=== PATIENT | male | born 1970 | race Caucasian/White ===

== ENCOUNTER 2019-11-19 22:54 | Emergency (ER) | payer SELFPAY ==
[2017-02-20 21:27] VITALS: BMI 20.9
[2019-11-19 22:56] VITALS: BP 129/88; PULSE 99; RESP 26; TEMP 36.6; O2SAT 100; BMI 20.2
--- NOTE | 2019-11-19 23:07 | ED.VISSUMM ---
- ER Visit Summary Date of Service: 11/19/19 Chief Complaint: Acute seizure History of Present Illness: The patient is a 49 M per the patient is a history of seizure disorder. Normally takes Keppra but has been out of it for months. Similar history per the paramedics. Reportedly had a tonic-clonic grand mal seizure lasting about a minute tonight at home. No reported injuries. There is no family with him as of this time. Patient denies any complaints. Denies any injuries. Denies any headache. Denies any recent fever or illness. Physical Examination: Middle-aged male no acute distress. Awake and alert. Vital signs are stable and afebrile. Pulse ox 100% on room air no signs hypoxia. H EENT exam atraumatic. Pupils round reactive light. No trauma to his face or scalp. Nontender. Poor dentition. Neck nontender. No lymphadenopathy. Spine nontender. Lungs clear to auscultation bilaterally. Heart regular rhythm rate about 95 no murmur. Chest wall nontender. Abdomen soft nontender. Pelvic girdle intact. Patient is moving all 4 extremities. They are neurovascular intact. Nontender. No deformity. Normal range of motion. Back nontender. Neurologically is awake and alert. He does know that he is in the hospital. He is answering questions and following commands. He does appear somewhat postictal but coming out of it. Test Results: BMP shows no acute abnormality. Normal gap. Normal BUN and creatinine. Emergency Department Course and Treatment: Patient with reported grand mal seizure with a history of the same. He will be loaded p.o. with Keppra. Chemistry panel being obtained. I did discuss the patient's history and care with his significant other in the emergency department at 23:57 PM. On repeat exam he is doing well. She states he was in bed when he had the seizure and there was no fall or trauma. He has been off his medications for some time. He does not drive due to his seizure history. Treatment Plan: Keppra twice daily. Follow-up with local physician. Return if worse. Disposition: Discharge Impression: Acute seizure ([place] mall) History of seizure disorder Noncompliant and out of his medication This note was generated with [employer] software. It may contain incorrect words, spelling, and punctuation that were not noted in review of the chart prior to signing ED Disposition - Plan for ED Patient: Referrals: NOT,DEFINED [Primary Care Provider] -
[2019-11-19] MEDS: levETIRAcetam 1,000 MG Tablet 1000 MG PO (23:17)
[2019-11-19 23:33] LABS: Anion Gap 12 (5-15); BUN 18 mg/dL (7-18); BUN/Creat Ratio 17.3 RATIO (10-20); Calcium,Total 8.4 mg/dL (8.5-10.1); Chloride 109 mmol/L (98-107); Creatinine, Serum 1.04 mg/dL (0.70-1.30); EST Glomerular Filtration Rate 81 mL/min (>60); Est Glom Filt Rate - Afr Amer 98 mL/min (>60); Estimated Creatinine Clearance 79.36 ml/min; Glucose 121 mg/dL (74-106); Potassium 4.1 mmol/L (3.5-5.1); Sodium Level 137 mmol/L (136-145)
--- NOTE | 2019-11-20 | ED.DEP ---
ED Disposition - Plan for ED Patient: Disposition: Home or Assisted Living Instructions: ED Seizure Recurrent Adult Prescriptions: levETIRAcetam tablet [Keppra tablet] 500 mg PO BID #60 tab Prescription Printed Referrals: Curt Weber MD [STAFF PHYSICIAN] - As soon as possible Additional Instructions: Take your Keppra as prescribed daily. Follow-up with a local primary care physician and/or neurologist. Return if worse.
[2019-11-20 00:16] VITALS: BP 129/85; PULSE 86; RESP 15; O2SAT 97
== END 2019-11-20 00:16 | disposition home or self-care (01) ==
PROVIDERS: Emergency Provider Emergency Medicine
DX: G40.409 Other generalized epilepsy and epileptic syndromes, not intractable, without status epilepticus (principal); Z91.19 Patient's noncompliance with other medical treatment and regimen; Z72.0 Tobacco use; Z79.899 Other long term (current) drug therapy
CPT/HCPCS: 80048; 99285; A4216

== ENCOUNTER 2023-03-21 05:40 | Emergency (ER) | payer OTHER, MEDICAID, SELFPAY ==
[2023-03-21 05:42] VITALS: BP 122/87; PULSE 80; RESP 16; TEMP 36.8; O2SAT 99; BMI 22.6
--- NOTE | 2023-03-21 05:58 | EX.ED.DYSGE1 ---
HPI History of Present Illness Chief Complaint: Seizure Informant: patient, family and EMS Narrative Narrative: Significant other witnessed patient having 3 separate seizures in a row, the first 1 lasting 1 minute, then 2 minutes, then about 3 minutes. He was postictal afterwards. Could not tell if he was breathing or not and called 911. He has a longstanding history for 30 years or so of seizures like this, he has had no recent illnesses or injuries to his head, currently is asymptomatic except for fatigue. He used to be on seizure medication but he has not taken any for over a year because he does not see doctors and ran out of the medication he received from the ER the last time. He used to be on Tegretol which worked the best. He has no idea what dose. He had tried Keppra before and did not tolerate it well. Has been on other medications in the past as well but cannot remember any of the details. Does not have a local doctor, he is from [place]. [facility] Medical History Marijuana use Seizure Home Medications carbamazepine 200 mg tablet (Tegretol) 200 mg PO TID #90 tabs 03/21/23 [Rx Last Taken Unknown] Allergy/AdvReac Type Severity Reaction Status Date / Time No Known Allergies Allergy Verified 03/21/23 05:41 Social History (Updated 03/21/23 @ 06:[address] Nam Wen MD) Smoking Status: Current some day smoker tobacco type: cigarettes substance use type: other details: Denies using any drugs ROS ROS ED Constitutional Constitutional ED: Reports fatigue; Denies chills or fever(s) Eyes Eyes: Denies change in vision or diplopia ENT ENT ED: Denies rhinorrhea or sore throat Cardiovascular Cardiovascular: Denies chest pain or palpitations Respiratory/Chest Respiratory/Chest: Denies cough or dyspnea Gastrointestinal Gastrointestinal: Denies abdominal pain, diarrhea, nausea or vomiting Genitourinary Genitourinary ED: Denies dysuria or hematuria Musculoskeletal Musculoskeletal: Denies back pain or neck pain Integumentary Denies abscess or rash Neurologic Neurologic: Reports as per HPI and seizures; Denies headache(s), paresthesias or weakness Psychiatric Psychiatric: Denies anxiety or suicidal thoughts EXAM Physical Exam Const Vital Signs: 03/21/23 05:42 Temperature 98.3 F Temperature Source Temporal Pulse Rate 80 Respiratory Rate 16 Blood Pressure 122/87 H Blood Pressure Mean 98 Pulse Ox 99 Positive well nourished and well developed General Appearance ED: well developed and NAD HEENT Reports moist mucous membranes normocephalic and atraumatic Eyes PERRL and EOMs intact bilaterally Neck full ROM and supple Resp normal respiratory effort and clear to auscultation bilaterally Cardio regular rate, regular rhythm and no murmurs GI non-tender and non-distended Auscultation: normoactive bowel sounds Palpation: soft Back/Spine no CVA tenderness General Back: other FROM Extremity normal to inspection General Extremety ED: Negative for edema, pulses abnormal or tenderness General Extremity: Negative for edema or pulses abnormal Neuro oriented x3, CN's II-XII intact bilaterally and no sensory deficits noted Sensorium / Orientation: awake and alert Motor Exam: strength 5/5 throughout Skin no rashes or lesions noted and no wounds MDM MDM MDM Narrative Medical decision making narrative: Patient has normal vital signs, he is alert and oriented with a benign exam and normal neurologic exam. With a history of seizures, I do not think he needs emergent work-up of any type. Reasonable to start him on Tegretol, he states he does not desire to take it and wants to get started back on medications and follow with a doctor regularly so he is given a prescription started on 200 mg 3 times daily and referred to neurology. Discharge Plan Triage Chief Complaint: Seizure ED Provider: Nam Wen Dx/Rx/DC Orders Clinical Impression: Seizure disorder, Seizure Instructions: ED Seizure, Recurrent (Adult) Prescriptions: New carbamazepine [Tegretol] 200 mg tablet 200 mg PO TID Qty: 90 0RF Primary Care Provider: Care Physician,No Primary Referrals: Amanuel Reddy MD [Non-Staff -Ordering Privileges] - (call for follow up) Disposition Disposition: Home, Self Care
--- NOTE | 2023-03-21 06:17 | ED.RN ---
ATTEMPTED TO CALL REPORT AND NO ONE WAS AVAILABLE AT THIS TIME.
[2023-03-21] MEDS: carBAMazepine 200 MG Tablet PO (06:29)
[2023-03-21 06:32] VITALS: BP 118/86
== END 2023-03-21 06:33 | disposition home or self-care (01) ==
LOC: ED 06:13
PROVIDERS: Emergency Provider Emergency Medicine; Visit Provider Emergency Medicine
DX: G40.909 Epilepsy, unspecified, not intractable, without status epilepticus (principal); F17.210 Nicotine dependence, cigarettes, uncomplicated
CPT/HCPCS: 99284

== ENCOUNTER 2023-06-14 11:33 | Emergency (ER) | payer OTHER, MEDICAID, SELFPAY ==
[2023-06-14 11:35] VITALS: BP 114/71; PULSE 59; RESP 16; TEMP 36.4; O2SAT 98; BMI 22.9
--- NOTE | 2023-06-14 12:13 | EDS_ITS ---
HPI History of Present Illness Chief Complaint: Seizure Informant: patient and spouse/S.O. Narrative Narrative: 52-year-old male presenting to the emergency room needing medication refill for his seizure medication. Patient states he has had seizures in his sleep since he was 19. He states that he is originally from [place]. He states that a couple times he has had seizures during the day but he has had an EKG and CT that did not show epilepsy. He was in the emergency room last February was given Tegretol 3 times a day which has worked well for him in the past. He states he has been taking that at nighttime before bedtime because that is when he has his seizures. He has not been taking it 3 times a day. He did not establish primary care after his last visit but is interested and feels highly motivated and do so today. He states that he had a seizure last night during his sleep. He does not feel that he injured himself. [facility] Medical History Marijuana use Seizure Home Medications carbamazepine 200 mg tablet (Tegretol) 200 mg PO TID #90 tabs 03/21/23 [Rx Last Taken Unknown] carbamazepine 200 mg tablet (Tegretol) 200 mg PO TID #90 tabs 06/14/23 [Rx Last Taken Unknown] Allergy/AdvReac Type Severity Reaction Status Date / Time No Known Allergies Allergy Verified 06/14/23 11:37 Social History Smoking Status: Current some day smoker tobacco type: cigarettes substance use type: other details: Denies using any drugs ROS ROS ED Constitutional Constitutional ED: Denies chills, fever(s) or weight loss Eyes Eyes: Denies change in vision or diplopia ENT ENT ED: Denies ear pain, rhinorrhea or sore throat Cardiovascular Cardiovascular: Denies chest pain, orthopnea, palpitations or racing heartbeat Respiratory/Chest Respiratory/Chest: Denies cough, dyspnea or orthopnea Gastrointestinal Gastrointestinal: Denies abdominal pain, diarrhea, nausea or vomiting Genitourinary Genitourinary ED: Denies dysuria, hematuria or urinary frequency Musculoskeletal Musculoskeletal: Denies arthralgias or myalgias Integumentary Denies abscess or rash Neurologic Neurologic: Reports other Details: Seizure ; Denies headache(s) or weakness Psychiatric Psychiatric: Denies anxiety, depression, suicidal ideation or suicidal thoughts Endocrine Endocrinology: Denies polydipsia, polyphagia or polyuria Allergic/Immunologic Allergic/Immunologic ED: Denies mouth swelling, tongue swelling or urticaria EXAM Physical Exam Const Vital Signs: 06/14/23 11:35 Temperature 97.6 F L Temperature Source Temporal Pulse Rate 59 L Respiratory Rate 16 Blood Pressure 114/71 Blood Pressure Mean 85 Pulse Ox 98 Oxygen Delivery Method Room Air Positive well nourished and well developed General Appearance ED: well developed HEENT Reports normocephalic, head/scalp atraumatic and moist mucous membranes Eyes PERRL and EOMs intact bilaterally Neck no lymphadenopathy, supple and no JVD Resp normal respiratory effort and clear to auscultation bilaterally Cardio regular rate, regular rhythm and no murmurs GI normal to inspection, nondistended, normoactive bowel sounds and non-tender Palpation: soft Back/Spine no CVA tenderness and normal ROM Extremity normal to inspection General Extremety ED: Negative for edema General Extremity: Negative for edema Neuro oriented x3 and CN's II-XII intact bilaterally Sensorium / Orientation: alert Motor Exam: strength 5/5 throughout Psych mental status grossly normal Mood & Affect: Negative for depressed or tearful Skin no rashes or lesions noted and no wounds MDM MDM MDM Narrative Medical decision making narrative: I am more than happy to provide the patient a refill of his Tegretol but he really needs to establish primary care especially if he is going to be in the area for a while which she plans on doing so. Discharge Plan Triage Chief Complaint: Seizure ED Provider: Irvin Hung Dx/Rx/DC Orders Clinical Impression: Medication refill, Seizure Instructions: ED Seizure, Recurrent (Adult) Prescriptions: New carbamazepine [Tegretol] 200 mg tablet 200 mg PO TID Qty: 90 1RF No Action carbamazepine [Tegretol] 200 mg tablet 200 mg PO TID Qty: 90 0RF Patient Comments: pt. admitted that he only takes medications when he thinks he needs it Primary Care Provider: Care Physician,No Primary Referrals: Chandler Cleary MD [Med Staff - Research Asst] - As soon as possible Care Physician,No Primary [Primary Care Provider] - Disposition Disposition: Home, Self Care
== END 2023-06-14 12:20 | disposition home or self-care (01) ==
LOC: ED 12:17
PROVIDERS: Emergency Provider Emergency Medicine; Visit Provider Emergency Medicine
DX: Z76.0 Encounter for issue of repeat prescription (principal); R56.9 Unspecified convulsions; F17.210 Nicotine dependence, cigarettes, uncomplicated
CPT/HCPCS: 99282

== ENCOUNTER 2023-11-22 10:59 | Emergency (ER) | payer MEDICAID, SELFPAY ==
[2023-11-22 11:00] VITALS: BP 132/98; PULSE 50; RESP 18; TEMP 35.9; O2SAT 98; BMI 21.9
--- NOTE | 2023-11-22 11:56 | EDS_ITS ---
HPI History of Present Illness Chief Complaint: Other, Pain/Inj Informant: patient Onset/Context/Timing Current Severity: Mild Maximum Severity: Mild Narrative Narrative: 53-year-old male here for 2 different reasons. He has had a right inguinal hernia for years. And he wants to get a referral to a surgeon to have it evaluated to have it surgically repaired. Also he does not a primary care physician and it was looking to get a refill of his Tegretol because he has history of seizures. He has not had a seizure for about a month. Prior similar symptoms: Yes Recent Illness/Hospitalization: No PFSH PFS Medical History Marijuana use Seizure Home Medications ?Medication ?Instructions ?Recorded ?Last Taken ?Type carbamazepine 200 mg tablet 200 mg PO TID #90 tabs 03/21/23 Unknown Rx (Tegretol) carbamazepine 200 mg tablet 200 mg PO TID #90 tabs 06/14/23 Unknown Rx (Tegretol) carbamazepine 200 mg tablet 200 mg PO TID 30 days #90 tabs 11/22/23 Unknown Rx (Tegretol) Allergy/AdvReac Type Severity Reaction Status Date / Time No Known Allergies Allergy Verified 06/14/23 11:37 Social History Smoking Status: Current some day smoker tobacco type: cigarettes substance use type: other details: Denies using any drugs ROS ROS ED ROS Narrative Denies recent illness. Review of Systems ROS Unobtainable: Denies due to encephalopathy Constitutional Constitutional ED: Denies chills Eyes Eyes: Denies blurry vision ENT ENT ED: Denies ear pain Cardiovascular Cardiovascular: Denies chest pain Respiratory/Chest Respiratory/Chest: Denies cough Gastrointestinal Gastrointestinal: Reports abdominal pain; Denies constipation, diarrhea, melena, nausea or vomiting Genitourinary Genitourinary ED: Denies dysuria Musculoskeletal Musculoskeletal: Denies arthralgias Integumentary Denies abscess Neurologic Neurologic: Denies headache(s) Psychiatric Psychiatric: Denies anxiety Endocrine Endocrinology: Denies cold intolerance Hematologic/Lymphatic Hematologic/Lymphatic: Reports none Allergic/Immunologic Allergic/Immunologic ED: Denies mouth swelling, tongue swelling or urticaria EXAM Physical Exam Narrative Exam Narrative: Well-appearing middle-age male. Vital signs stable afebrile. H EENT exam unremarkable except poor dentition. His lower dentition is loose from a recent fall after his seizure about a month ago where he injured his teeth. Neck nontender. Lungs are clear. Heart regular rhythm no murmur. Chest wall and ribs are nontender. Abdomen is soft nontender. Right inguinal canal he has a small hernia that easily reduces spontaneously. It is not tender. It is not incarcerated or strangulated. Moving all 4 extremities. Nontender no deformity. Normal range of motion. No edema. Back nontender. Neurologically is awake and alert no focal motor deficits. Const Vital Signs: 11/22/23 11:00 Temperature 96.6 F L Temperature Source Temporal Pulse Rate 50 L Respiratory Rate 18 Blood Pressure 132/98 H Blood Pressure Mean 109 Pulse Ox 98 Oxygen Delivery Method Room Air Positive well nourished and well developed; Negative for obese, cachectic, contractures or unkempt General Appearance ED: well developed and NAD; Negative for unkempt, cachectic, contractures, cyanotic, diaphoretic or pallor Nutritional Appearance: Negative for cachectic or obese HEENT Reports moist mucous membranes; Denies dry mucous membranes or other Negative for trauma, tenderness or other Mouth ED: No dry mucous membranes Mouth: No dry mucous membranes Eyes PERRL and EOMs intact bilaterally General Eye ED: Negative for pale conjunctiva, scleral icterus or other Neck no lymphadenopathy, supple and no JVD General: Negative for tenderness Lymph Lymphatic: Negative for other Chest Wall inspection of chest normal and palpation of chest normal Chest: Negative for other Resp normal respiratory effort and clear to auscultation bilaterally Effort and Inspection: Negative for retractions, pain with movement or other Cardio regular rate, regular rhythm, S1 normal heart sound, S2 normal heart sound and no murmurs Palpation: Negative for palpable S4 Rate: Negative for bradycardia or tachycardic Rhythm: Negative for abnormal rhythm GI normal to inspection, nondistended, normoactive bowel sounds, non-tender, non- distended and no masses GI Narrative: Right inguinal hernia. Spontaneously reduces. No strangulation or incarceration. Nontender. Inspection: Negative for abdominal distention Auscultation: normoactive bowel sounds Palpation: soft; Negative for tender, guarding or rebound tenderness present Back/Spine no CVA tenderness General Back: Negative for CVA tenderness Cervical Spine: Negative for cervical spine tenderness Thoracic Spine / Upper Back: Negative for thoracic spinal tenderness Lumbar Spine / Lower Back: Negative for lumbar spinal tenderness Extremity normal to inspection General Extremety ED: Negative for edema or tenderness General Extremity: Negative for edema Neuro oriented x3 and CN's II-XII intact bilaterally Sensorium / Orientation: Negative for orientation impaired, lethargic or stuporous Motor Exam: strength 5/5 throughout Psych mental status grossly normal Appearance: Negative for unkempt Attitude: No agitated Mood & Affect: Negative for depressed, anxious or tearful Skin no rashes or lesions noted and no wounds General Skin Exam: Negative for jaundice or pallor Lesions: No lesion noted Rashes: No rashes noted Trauma: Negative for abrasion Wounds: Negative for wounds noted MDM MDM MDM Narrative Medical decision making narrative: 53-year-old male who has had a chronic right inguinal hernia. It is not strangulated or incarcerated. Is not even tender at this time. Follow-up with a local general surgeon to discuss with them about getting this repaired. Also gave him a local primary care physician and a prescription for his Tegretol for the next 30 days for his seizure disorder. History & Record Review Discussion w/independent historian: Patient Discharge Plan Triage Chief Complaint: Other, Pain/Inj ED Provider: Domenico Hanley Dx/Rx/DC Orders Clinical Impression: Inguinal hernia, History of seizures, Has run out of medications Instructions: ED Hernia (Adult) Prescriptions: New carbamazepine [Tegretol] 200 mg tablet 200 mg PO TID 30 Days Qty: 90 0RF No Action carbamazepine [Tegretol] 200 mg tablet 200 mg PO TID Qty: 90 1RF carbamazepine [Tegretol] 200 mg tablet 200 mg PO TID Qty: 90 0RF Patient Comments: pt. admitted that he only takes medications when he thinks he needs it Primary Care Provider: Care Physician,No Primary Referrals: Curt Weber MD [Med Staff - Resistance Welder] - As soon as possible Abhijeet James MD [Med Staff - Active Staff] - As soon as possible Care Physician,No Primary [Primary Care Provider] - Activity Restrictions/Additional Instructions: Call and follow-up with Dr. Abhijeet James a general surgeon here in the hospital he can fix your hernia. Call and follow-up Dr. Curt Weber local primary care physician so you can get a local physician. Motrin and Tylenol for pain. Print Language: Swedish Disposition Disposition: Home, Self Care
== END 2023-11-22 12:07 | disposition home or self-care (01) ==
PROVIDERS: Emergency Provider Emergency Medicine; Visit Provider Emergency Medicine
DX: K40.90 Unilateral inguinal hernia, without obstruction or gangrene, not specified as recurrent (principal); G40.909 Epilepsy, unspecified, not intractable, without status epilepticus; Z76.0 Encounter for issue of repeat prescription; F17.210 Nicotine dependence, cigarettes, uncomplicated; Z79.899 Other long term (current) drug therapy
CPT/HCPCS: 99282

== ENCOUNTER 2024-01-23 16:04 | Emergency (ER) | payer MEDICAID, SELFPAY ==
[2024-01-23 16:05] VITALS: BP 130/93; PULSE 78; RESP 16; TEMP 36.1; O2SAT 98; BMI 21.9
--- NOTE | 2024-01-23 16:55 | EX.ED.DYSGE1 ---
HPI History of Present Illness Chief Complaint: Abscess Informant: patient Narrative Narrative: 53-year-old male emergency room with swelling on his back. Patient states for more than a decade he has intermittently had a localized swelling in the mid back. States sometimes it gets larger and he drains it himself. States sometimes it goes down and is barely noticeable. He states that he has been working out more recently and its gotten more swollen and is not tender. He also states he needs a refill of his Tegretol medication, and a referral to neurology, primary care and general surgery as he lost those referrals. States he has an inguinal hernia on the right for years and would like to see about getting that fixed. [facility] Medical History Inguinal hernia Abscess Marijuana use Seizure Home Medications ?Medication ?Instructions ?Recorded ?Last Taken ?Type carbamazepine 200 mg tablet 200 mg PO TID #90 tabs 03/21/23 Unknown Rx (Tegretol) carbamazepine 200 mg tablet 200 mg PO TID #90 tabs 01/23/24 Unknown Rx (Tegretol) cephalexin 500 mg capsule 500 mg PO TID #15 caps 01/23/24 Unknown Rx Allergy/AdvReac Type Severity Reaction Status Date / Time No Known Allergies Allergy Verified 06/14/23 11:37 Social History Smoking Status: Current some day smoker tobacco type: cigarettes and cigars substance use type: other details: Denies using any drugs ROS ROS ED Constitutional Constitutional ED: Denies chills, fever(s) or weight loss Eyes Eyes: Denies change in vision or diplopia ENT ENT ED: Denies ear pain, rhinorrhea or sore throat Cardiovascular Cardiovascular: Denies chest pain, orthopnea, palpitations or racing heartbeat Respiratory/Chest Respiratory/Chest: Denies cough, dyspnea or orthopnea Gastrointestinal Gastrointestinal: Denies abdominal pain, diarrhea, nausea or vomiting Genitourinary Genitourinary ED: Denies dysuria, hematuria or urinary frequency Musculoskeletal Musculoskeletal: Denies arthralgias or myalgias Integumentary Reports abscess; Denies rash Neurologic Neurologic: Denies headache(s) or weakness Psychiatric Psychiatric: Denies anxiety, depression, suicidal ideation or suicidal thoughts Endocrine Endocrinology: Denies polydipsia, polyphagia or polyuria Allergic/Immunologic Allergic/Immunologic ED: Denies mouth swelling, tongue swelling or urticaria EXAM Physical Exam Const Vital Signs: 01/23/24 16:05 Temperature 97 F L Temperature Source Temporal Pulse Rate 78 Respiratory Rate 16 Blood Pressure 130/93 H Blood Pressure Mean 105 Pulse Ox 98 Oxygen Delivery Method Room Air Positive well nourished and well developed General Appearance ED: well developed HEENT Reports normocephalic, head/scalp atraumatic and moist mucous membranes Eyes PERRL and EOMs intact bilaterally Neck no lymphadenopathy, supple and no JVD Resp normal respiratory effort and clear to auscultation bilaterally Cardio regular rate, regular rhythm and no murmurs GI normal to inspection, nondistended, normoactive bowel sounds and non-tender Palpation: soft Back/Spine no CVA tenderness and normal ROM Extremity normal to inspection General Extremety ED: Negative for edema General Extremity: Negative for edema Neuro oriented x3 and CN's II-XII intact bilaterally Sensorium / Orientation: alert Motor Exam: strength 5/5 throughout Psych mental status grossly normal Mood & Affect: Negative for depressed or tearful Skin no rashes or lesions noted and no wounds Skin Narrative: There is a round rubbery swelling acute dehydration just along the mid thoracic back. It is mildly tender to palpation. There is no induration or warmth surrounding it. It measures approximately 2 cm in diameter. MDM MDM MDM Narrative Medical decision making narrative: Differential diagnosis includes but not limited to cutaneous abscess infected sebaceous cyst Patient provided informed consent for local incision and drainage. The area of concern was washed with Betadine allowed to dry. Local anesthetic used 1% lidocaine. 1/2 cm linear incision was made just underneath his tattoo. Hemostats were used to enter into the cyst with a return over the large amount of cottage cheeselike drainage. Wound was irrigated. Homeostasis achieved. Band-Aid was applied after washing the Betadine off. Patient will be started on Keflex for 5 days. I will refill his Tegretol. I can refer him to general surgery for the hernia and follow-up for the cyst as it most likely will recur. Patient notes understanding of this. I can also refer him to primary care and neurology again. History & Record Review Discussion w/independent historian: Patient Additional record(s) reviewed:: Prior ED visit Discharge Plan Triage Chief Complaint: Abscess ED Provider: Irvin Hung Dx/Rx/DC Orders Clinical Impression: Medication refill, Inguinal hernia, Sebaceous cyst Prescriptions: New carbamazepine [Tegretol] 200 mg tablet 200 mg PO TID Qty: 90 1RF cephalexin 500 mg capsule 500 mg PO TID Qty: 15 0RF No Action carbamazepine [Tegretol] 200 mg tablet 200 mg PO TID Qty: 90 0RF Patient Comments: pt. admitted that he only takes medications when he thinks he needs it; I barely take it 3 times a day 01/23/2024 Primary Care Provider: Care Physician,No Primary Referrals: Curt Weber MD [Med Staff - Centrifuge Operator] - As soon as possible (for primary care) Abhijeet James MD [Med Staff - Active Staff] - As soon as possible (For surgical evaluation of hernia) Amanuel Reddy MD [Non-Staff -Ordering Privileges] - As soon as possible (for neurology evaluation) Care Physician,No Primary [Primary Care Provider] - Print Language: Kazakh Disposition Disposition: Home, Self Care
[2024-01-23] MEDS: Lidocaine 1% (20 ml mdv) 20 ML Vial INFILT (17:15)
== END 2024-01-23 17:40 | disposition home or self-care (01) ==
PROVIDERS: Emergency Provider Emergency Medicine; Visit Provider Emergency Medicine
DX: L72.3 Sebaceous cyst (principal); K40.90 Unilateral inguinal hernia, without obstruction or gangrene, not specified as recurrent; Z76.0 Encounter for issue of repeat prescription; F17.210 Nicotine dependence, cigarettes, uncomplicated; F17.290 Nicotine dependence, other tobacco product, uncomplicated; Z79.899 Other long term (current) drug therapy
CPT/HCPCS: 10060; 99282

== ENCOUNTER 2024-02-02 13:37 | Emergency (ER) | payer MEDICAID, SELFPAY ==
[2024-02-02 13:38] VITALS: BP 116/68; PULSE 74; RESP 16; TEMP 36.1; O2SAT 98; BMI 20.9
--- NOTE | 2024-02-02 13:51 | EX.ED.DYSGE1 ---
HPI History of Present Illness Chief Complaint: Wound Check Detail of Chief Complaint: Recent I&D infected sebaceous cyst concern for infection Informant: patient Onset/Context/Timing Onset: Days Context: Sudden Onset Timing: - (Incised and drained and placed on antibiotics for 5 days) Quality: Infected sebaceous cyst Location: Back midline upper thoracic region/intrascapular Maximum Severity: Not applicable Worsened by: Working out with weights Relieved by: Not applicable none Associated Symptoms Associated Symptoms: None Narrative Narrative: Patient is a 53-year-old male. He had an I&D performed at outside facility of an infected sebaceous cyst. He was placed on 5-day course of antibiotics. He believes he needs additional antibiotics. Is complaining of itching. States itching is worse when he works out. He denies fever, chills night sweats. Has a traumatic fever, heart murmur mitral prolapse. He was seen on January 22 for hernia. Prior similar symptoms: No Recent Illness/Hospitalization: Yes PFSH PFS Medical History Hx of fracture of clavicle Inguinal hernia Abscess Marijuana use Seizure Home Medications ?Medication ?Instructions ?Recorded ?Last Taken ?Type carbamazepine 200 mg tablet 200 mg PO TID #90 tabs 01/23/24 Unknown Rx (Tegretol) cephalexin 500 mg capsule 500 mg PO TID #15 caps 01/23/24 Unknown Rx Allergy/AdvReac Type Severity Reaction Status Date / Time No Known Allergies Allergy Verified 02/02/24 13:38 Family History Grandfather Cancer Grandmother Cancer Social History Smoking Status: Current some day smoker tobacco type: cigarettes and cigars alcohol intake: never substance use type: marijuana and other details: Uses marijuana approximately every other day ROS ROS ED Constitutional Constitutional ED: Denies chills, fever(s), subjective, sweats or weight loss Cardiovascular Cardiovascular: Reports palpitations Respiratory/Chest Respiratory/Chest: Reports dyspnea Gastrointestinal Gastrointestinal: Reports nausea and vomiting Integumentary Reports abscess and rash; Denies Abrasions Neurologic Neurologic: Denies paresthesias or weakness Hematologic/Lymphatic Hematologic/Lymphatic: Reports systems reviewed and no addt'l complaints, except as documented EXAM Physical Exam Const Vital Signs: 02/02/24 13:38 Temperature 97 F L Temperature Source Temporal Pulse Rate 74 Respiratory Rate 16 Blood Pressure 116/68 Blood Pressure Mean 84 Pulse Ox 98 Oxygen Delivery Method Room Air Positive well nourished and well developed General Appearance ED: well developed and NAD; Negative for pallor HEENT Reports moist mucous membranes HEENT Narrative: Head is atraumatic and normocephalic. Eyes PERRL and EOMs intact bilaterally General Eye ED: Negative for pale conjunctiva or scleral icterus Resp normal respiratory effort and clear to auscultation bilaterally Cardio regular rate, regular rhythm, S1 normal heart sound, S2 normal heart sound and no murmurs Extremity normal to inspection Neuro oriented x3 and CN's II-XII intact bilaterally Sensorium / Orientation: alert Psych mental status grossly normal Skin Skin Narrative: Incision site noted. There is no erythema, warmth induration. Patient does have sunburn. This is probably the cause of his itching. There is no fluctuance noted. The incision was below the O on his tattoo. General Skin Exam: Negative for jaundice or pallor MDM MDM MDM Narrative Medical decision making narrative: Patient was informed he does not need antibiotics. Is no concern for infection. He he was informed that his itching is probably due to sunburn. Discharge Plan Triage Chief Complaint: Wound Check ED Provider: Vasquez Trammell Dx/Rx/DC Orders Clinical Impression: 1st degree sunburn, Wound check, abscess Instructions: ED Sunburn, ED Wound Check (Infection) Prescriptions: No Action carbamazepine [Tegretol] 200 mg tablet 200 mg PO TID Qty: 90 1RF cephalexin 500 mg capsule 500 mg PO TID Qty: 15 0RF Primary Care Provider: Care Physician,No Primary Referrals: Care Physician,No Primary [Primary Care Provider] - Activity Restrictions/Additional Instructions: Follow-up with your doctor as needed. The name of your doctor is on your insurance card. Print Language: [place] Disposition Disposition: Home, Self Care
[2024-02-02 14:11] VITALS: BP 134/78; PULSE 64; RESP 18; TEMP 36.4; O2SAT 98
== END 2024-02-02 14:11 | disposition home or self-care (01) ==
LOC: ED 14:03
PROVIDERS: Emergency Provider Emergency Medicine; Visit Provider Emergency Medicine
DX: L55.0 Sunburn of first degree (principal); G40.909 Epilepsy, unspecified, not intractable, without status epilepticus; F17.290 Nicotine dependence, other tobacco product, uncomplicated; F17.210 Nicotine dependence, cigarettes, uncomplicated; L72.3 Sebaceous cyst; Z79.899 Other long term (current) drug therapy
CPT/HCPCS: 99282